=== PATIENT | female | born 1960 | race Hispanic/Latino ===

== ENCOUNTER 2018-01-10 17:04 | Emergency (ER) | payer BC, OTHER ==
[2018-01-10] MEDS ORDERED: LORATADINE 10 MG TABLET ONE (18:03)
[2018-01-10] MEDS ORDERED: IPRATROPIUM/ALBUTEROL SULFATE 3 ML SOLUTION IH ONE (18:17)
[2018-01-10] MEDS ORDERED: DIPHENHYDRAMINE HCL 25 MG CAPSULE ONE (19:29)
== END 2018-01-10 20:44 | disposition home or self-care (01) ==
LOC: EDH 17:04
DX: J30.0 Vasomotor rhinitis (principal); J01.90 Acute sinusitis, unspecified; R05 Cough; I10 Essential (primary) hypertension; M79.1 Myalgia; Z72.0 Tobacco use
CPT/HCPCS: 71046; 87804 ×2; 94640; 99285; Q0163

== ENCOUNTER 2018-10-11 10:16 | Emergency (ER) | payer OTHER ==
[2018-10-11] MEDS ORDERED: KETOROLAC TROMETHAMINE 60 MG/2 ML VIAL ONE (10:52)
[2018-10-11] MEDS ORDERED: DIAZEPAM 5 MG TABLET ONE (10:53)
== END 2018-10-11 14:14 | disposition home or self-care (01) ==
LOC: EDH 10:16
DX: K59.00 Constipation, unspecified (principal); M54.6 Pain in thoracic spine; I10 Essential (primary) hypertension; Z90.710 Acquired absence of both cervix and uterus; Z98.890 Other specified postprocedural states; Z72.0 Tobacco use
CPT/HCPCS: 74021; 96372; 99283; J1885

== ENCOUNTER 2018-11-12 02:50 | Emergency (ER) | payer OTHER ==
[2018-11-12 03:33] LABS: BASOPHILS % (AUTO) 0.9 % (0.0-5.0); EOSINOPHILS % (AUTO) 2.4 % (0.0-8.0); LYMPHOCYTES % (AUTO) 36.9 % (21.0-51.0); MEAN CORPUSCULAR HEMOGLOBIN 31.6 pg (27.0-33.0); MEAN CORPUSCULAR HGB CONC 33.7 g/dL (32.0-36.0); MEAN CORPUSCULAR VOLUME 93.8 fL (79-99); MONOCYTES % (AUTO) 7.8 % (3.0-13.0); PLATELET COUNT (AUTO) 249 K/uL (130-400); RED BLOOD CELL COUNT(AUTO) 3.95 MIL/uL (4.00-5.50); RED CELL DISTRIBUTION WIDTH 12.6 % (11.0-15.5); WHITE BLOOD COUNT (AUTO) 6.9 K/uL (4.8-10.8)
[2018-11-12 04:07] LABS: POTASSIUM 3.8 mmol/L (3.5-5.1)
[2018-11-12 04:14] LABS: ALBUMIN 3.8 g/dL (3.5-5.0); BILIRUBIN,TOTAL 0.2 mg/dL (0.2-1.0); TOTAL PROTEIN, SERUM 6.9 g/dL (6.0-8.3)
[2018-11-12] MEDS ORDERED: PREDNISONE 20 MG TABLET ONE (04:37)
[2018-11-12] MEDS ORDERED: AZITHROMYCIN 250 MG TABLET PO ONE (04:38)
[2018-11-12] MEDS ORDERED: IPRATROPIUM/ALBUTEROL SULFATE 3 ML SOLUTION IH ONE (04:41)
== END 2018-11-12 05:57 | disposition home or self-care (01) ==
LOC: EDH 02:50
DX: J20.9 Acute bronchitis, unspecified (principal); I10 Essential (primary) hypertension; Z87.891 Personal history of nicotine dependence
CPT/HCPCS: 36415; 71046; 80053; 82550; 84484; 85025; 93005; 94640

== ENCOUNTER 2022-05-08 14:40 | Emergency (ER) | payer MEDICARE, OTHER ==
[~2022-05-08] VITALS: Ht 160 cm; Wt 108.4 kg
[2022-05-08 15:11] VITALS: BP 129/75
[2022-05-08] MEDS ORDERED: D-ME1POW16 PO (16:58)
== END 2022-05-08 17:05 | disposition home or self-care (01) ==
LOC: EDH 14:40
DX: J06.9 Acute upper respiratory infection, unspecified (principal); Z20.822 Contact with and (suspected) exposure to COVID-19; E78.00 Pure hypercholesterolemia, unspecified; I10 Essential (primary) hypertension; E66.01 Morbid (severe) obesity due to excess calories; Z88.8 Allergy status to other drugs, medicaments and biological substances; Z68.41 Body mass index [BMI] 40.0-44.9, adult
CPT/HCPCS: 99284; 71045; 87635; 87880; 87804 ×2; C9803

== ENCOUNTER 2025-06-05 21:20 | Emergency (ER) | payer MEDICARE ==
[~2025-06-05] VITALS: Ht 160 cm; Wt 79.8 kg
[~2025-06-05 21:20] MED LIST: D-ME1POW16 PO
[2025-06-05 21:21] VITALS: TEMP 98.6
--- NOTE | 2025-06-05 21:36 | EKG ---
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
[2025-06-05 21:37] LABS: IMMATURE GRANULOCYTE ABSOLUTE 0.11 K/uL (0-1); NUCLEATED RED BLOOD CELLS 0.0 % (0.0-0.19); PLATELET COUNT (AUTO) 295 K/uL (130-400); RED BLOOD CELL COUNT(AUTO) 4.04 MIL/uL (4.00-5.50); RED CELL DISTRIBUTION WIDTH 11.9 % (11.0-15.5); WHITE BLOOD COUNT (AUTO) 10.9 K/uL (4.8-10.8)
[2025-06-05 21:53] LABS: CREATININE 0.9 mg/dL (0.5-1.0); GLOMERULAR FILTR. RATE CALC 72.0 mL/min (>90); GLUCOSE,RANDOM 121.0 mg/dL (70-105); SODIUM SERUM 133.0 mmol/L (136-145); UREA NITROGEN, BLOOD 18.0 mg/dL (7-18)
[2025-06-05] MEDS: DICYCLOMINE HCL 10 MG/5 ML ML PO ONE (21:53)
[2025-06-05] MEDS: MAG/ALUM/SIMETH 30 ML UDCUP PO ONE (21:53)
[2025-06-05] MEDS: LIDOCAINE HCL 2% VISCOUS 15 ML UDCUP PO ONE (21:53)
[2025-06-05] MEDS: FAMOTIDINE 20MG TAB PO ONE (22:05)
[2025-06-05 23:05] VITALS: BP 121/77; PULSE 81; RESP 18; O2SAT 98
[2025-06-05 23:10] LABS: APPEARANCE,URINE CLEAR (CLEAR); GLUCOSE, URINE (UA) NEGATIVE (NEGATIVE); LEUKOCYTE ESTERASE ,URINE NEGATIVE Leu/uL (NEGATIVE); NITRATE,URINE NEGATIVE (NEGATIVE); OCCULT BLOOD,URINE NEGATIVE (NEGATIVE)
[2025-06-05 23:15] LABS: ADD UA MICROSCOPIC NO
[2025-06-05] MEDS ORDERED: PANT40TA PO (23:15)
[2025-06-05] MEDS ORDERED: KETO10 PO (23:15)
--- NOTE | 2025-06-05 23:22 | ERN ---
ED Note History of Present Illness Stated Complaint: ABDOMINAL PAIN/CHEST PAIN Chief Complaint: Abdominal Pain Time Seen by MD: 21:25 Dictation: This is a 65-year-old female from [facility] visiting her sister in [place] and she began experiencing upper abdominal pain radiating to the chest. She stated that all this started just today after eating dinner and she started having severe burning sensation and she tried drinking. Carbonated. Water without much improvement she also drank Coke and coffee prior to eating. No nausea vomitings diarrhea hematemesis or melena. She normally takes omeprazole at home. She also apparently gets something when her abdominal cramps start from her local physician but she did not bring any of her medications here Temperature 98.6 pulse 81 respirations 20 blood pressure 183/93 with a pulse oximetry of 100% on room air Patient has chronic medical problems include diverticulitis, GERD, hypercholesterolemia, hypertension, morbid obesity Allergies: Coded Allergies: gabapentin (Unverified Allergy, Unknown, 05/08/22) pregabalin (Unverified Allergy, Unknown, 05/08/22) Home Meds Active Scripts D-Methorphan/PE/Acetaminophen (Theraflu Ms Severe Cold Pckt) 1 Each Powd.pack, 1 EACH PO QID, #20 PACK Prov:GUERRERO ALEMAN 05/08/22 Past Medical History Past Medical History: Diverticulitis, GERD, High Cholesterol, Hypertension Additional Past Medical Hx: Morbidly obese Surgical History: Hysterectomy Surgical History Other: CARPAL TUNNLE AND ELBOW Family History: Negative Social History: Negative History: Not Applicable RN Note Reviewed/Agreed w/PFSH: Yes Review of System Dictation Constitutional: Negative for fever,chills, and weight loss Eyes: Negative for injury, pain,redness, and discharge ENT: Negative for injury,pain or swelling Cardiovascular: Negative for chest pain, palpitations, and edema Respiratory: Negative for shortness of breath, cough, and wheezing, Abdomen/GI: Positive for epigastricabdominal pain, severe heartburn and denied nausea, vomiting, diarrhea, and constipation Back: Negative for injury and pain : Negative for injury, bleeding and discharge MS/Extremity: Negative for injury and deformity Skin: Negative for rash, and discoloration Neuro: Negative for headache, weakness, numbness, tingling, and seizure Psych: Negative for suicide ideation, homicidal ideation, and hallucinations Initial Vital Sign VS Vital Signs Date Time Temp Pulse Resp B/P (MAP) Pulse Ox O2 Delivery O2 Flow Rate FiO2 06/05/25 21:21 98.6 81 20 183/93 100 Room Air 0 06/05/25 22:04 21 Physical Exam Dictation General: awake, alert, NAD obese female who is not in any distress Head/Face: Normocephalic, atraumatic Eyes: PERRL, EOMI, vision at baseline ENT: oral cavity clear, TMs clear, no signs of infection Neck: Trachea midline, supple, no nuchal rigidity Cardiovascular: RRR, normal S1/S2, No MRGs, no JVD Respiratory: CTAB, no respiratory distress, No rales or wheezes Abdomen: Soft, mild tenderness in the epigastric area and chest wall non- distended, normal bowel sounds, no guarding or rebound. Skin: Warm, dry, normal turgor, no rash MS/Extremity: Pulses equal, no cyanosis, neurovascular intact, FROM Neuro: COAx4, GCS 15, strength 5/5, CN 2-12 intact, normal cerebellar exam, normal gait, Psych: Normal behavior, mood, and affect normal Extremities-trace edema without any palpable cords, Homans sign is negative Results (Laboratory/Radiology) Laboratory/Radiology Laboratory Tests Test 06/05/25 21:30 White Blood Count 10.9 K/uL (4.8-10.8) H Red Blood Count 4.04 MIL/uL (4.00-5.50) Hemoglobin 13.0 g/dL (12.0-16.0) Hematocrit 37.3 % (36-48) Mean Corpuscular Volume 92.3 fL (79-99) Mean Corpuscular Hemoglobin 32.2 pg (27.0-33.0) Mean Corpuscular Hemoglobin Concent 34.9 g/dL (32.0-36.0) Red Cell Distribution Width 11.9 % (11.0-15.5) Platelet Count 295 K/uL (130-400) Mean Platelet Volume 10.0 fL (7.5-10.5) Immature Granulocyte % (Auto) 1.0 % (0-1) Neutrophils (%) (Auto) 80.5 % (40.0-77.0) H Lymphocytes (%) (Auto) 14.3 % (21.0-51.0) L Monocytes (%) (Auto) 3.8 % (3.0-13.0) Eosinophils (%) (Auto) 0.0 % (0.0-8.0) Basophils (%) (Auto) 0.4 % (0.0-5.0) Neutrophils # (Auto) 8.8 K/uL (1.8-7.7) H Lymphocytes # (Auto) 1.6 K/uL (1.0-4.8) Monocytes # (Auto) 0.4 K/uL (0.1-1.0) Eosinophils # (Auto) 0.00 K/uL (0.00-0.70) Basophils # (Auto) 0.04 K/uL (0.00-0.20) Absolute Immature Granulocyte (auto 0.11 K/uL (0-1) Nucleated Red Blood Cells 0.0 % (0.0-0.19) Sodium Level 133 mmol/L (136-145) L Potassium Level 3.1 mmol/L (3.5-5.1) L Chloride Level 102 mmol/L (101-111) Carbon Dioxide Level 29 mmol/L (21-32) Blood Urea Nitrogen 18 mg/dL (7-18) Creatinine 0.9 mg/dL (0.5-1.0) Glomerular Filtration Rate Calc 72 mL/min (>90) Random Glucose 121 mg/dL (70-105) H Total Calcium 9.4 mg/dL (8.5-10.1) Troponin I High Sensitivity 13 ng/L (4-50) Lipase 50 U/L (16-77) Labs Reviewed?: Yes ED Course ED Course Orders Procedure Category Date Status Time Vital Signs Per CPOE 06/05/25 Transmitted Routine 21:24 Saline Lock Iv CPOE 06/05/25 Transmitted 21:24 Cbc With Differential LAB 06/05/25 Complete 21:24 Lipase LAB 06/05/25 Complete 21:24 Urinalysis Profile LAB 06/05/25 In Process 21:24 12 Lead Ekg Tracing- EKG 06/05/25 Complete Technical 21:24 Troponin I High LAB 06/05/25 Complete Sensitivity 21:24 Basic Metabolic Panel LAB 06/05/25 Complete 21:24 Ketorolac PHA 06/05/25 Complete Tromethamine 15mg/Ml 22:00 Lidocaine Hcl 2% PHA 06/05/25 Complete Viscous (Lidocaine Hcl 22:00 Mag/Alum/Simeth 30ml PHA 06/05/25 Complete (Maalox Plus 30ml) 22:00 Famotidine 20mg Tab PHA 06/05/25 Complete (Pepcid 20mg Tab) 22:00 Dicyclomine Hcl PHA 06/05/25 Complete (Bentyl 10mg/5ml 22:00 Chest 1vw RAD 06/05/25 Taken 21:34 Potassium Bicarb/Cit PHA 06/05/25 Complete Ac 25meq (K-Lyte Ta 23:00 Current Medications Medications (Trade) Dose Ordered Sig/Florencia Route PRN Reason Start Time Stop Time Status Last Admin Dose Admin Al Hydroxide/Mg Hydroxide (MAALox PLUS 30ML) 30 ml ONCE ONCE PO 06/05/25 22:00 06/05/25 22:01 DC 06/05/25 21:53 Dicyclomine HCl (Bentyl 10mg/5ml Syrup) 10 mg ONCE ONCE PO 06/05/25 22:00 06/05/25 22:01 DC 06/05/25 21:53 Famotidine (Pepcid 20mg Tab) 20 mg ONCE ONCE PO 06/05/25 22:00 06/05/25 22:01 DC 06/05/25 22:05 Ketorolac Tromethamine (toRADol) 15 mg ONCE ONCE IV 06/05/25 22:00 06/05/25 22:01 DC 06/05/25 21:53 Lidocaine HCl (Lidocaine HCl 2% Viscous) 10 ml ONCE ONCE PO 06/05/25 22:00 06/05/25 22:01 DC 06/05/25 21:53 Potassium Bicarbonate (K-Lyte Tablet Eff 25 Meq Tablet.eff) 50 meq ONCE ONCE PO 06/05/25 23:00 06/05/25 23:01 DC 06/05/25 22:54 Vital Signs Date Time Temp Pulse Resp B/P (MAP) Pulse Ox O2 Delivery O2 Flow Rate FiO2 06/05/25 23:05 81 18 121/77 98 Room Air* 0 21 06/05/25 22:04 80 16 168/90 100 Room Air* 0 21 06/05/25 21:21 98.6 81 20 183/93 100 Room Air 0 We will perform diagnostic labs, imaging and administer medications according to the patient's complaint. Once the results are available, will review and personally interpreted the labs to rule out any acute life-threatening emergency the trach require immediate intervention and treatment. I will then re-evaluate the patient after treatment and diagnostic exams have return to determine whether the patient requires any further testing, can safely be discharged home or need further admission to hospital for additional treatment and evaluation. Labs reviewed CBC shows a white count of 10.9 hemoglobin and platelet count are within normal limits BNP 7 is significant for a potassium of 3.1 sodium 133 glucose is 121 lipase is 50 chest x-ray is unremarkable for any acute infiltrate Patient responded very well to symptomatic treatment and stated that even her chronic back pain is significantly improved. Potassium repleted. Patient will be discharged to home to follow up with her primary care physician in [place] Medical Decision Making MDM Differential diagnosis: Gastritis, esophagitis, biliary colic, gastroesophageal reflux disease, peptic ulcer disease, hiatal hernia Rationale: Tests considered and ordered secondary to shared decision making include: Previous outside records reviewed: Old ER visits. Risk of complication and/or morbidity or mortality of patient management: None Medications-Per medication reconciliation Need for hospitalization: Patient does not meet criteria for hospitalization. Need for emergency major/minor surgery: No There are no social concerns with this patient. Prescription drug management Prescriptions will include symptomatic care Patient's prior external medical records from other ER visits were reviewed by me as indicated. Prior testing and results from previous visits were reviewed. Prior tests were taken into account with medical decision making and resource utilization, independent historian/historians were used to obtain complete medical history. I independently interpreted the test that were performed, results were reviewed by me and considered findings on radiology if ordered. Medical management and examination interpretation discussions were had by me with other qualified healthcare professionals as indicated for the patient's care. DX & DISP Disposition: Discharge Departure Impression: Primary Impression: Gastroesophageal reflux disease Additional Impression: Esophagitis with gastritis Condition: Stable Scripts Pantoprazole Sodium (Protonix) 40 Mg Tablet. 1 TAB PO DAILY for 15 Days, #15 TAB 0 Refills Prov: DILCIA FLORES MD 06/05/25 Ketorolac Tromethamine (Toradol) 10 Mg Tab 10 MG PO QID for pain for 5 Days, #20 TAB 0 Refills Prov: DILCIA FLORES MD 06/05/25 Additional Instructions: Patient and the caregiver have been informed of all the diagnostic tests and the imaging conducted during the today's visit to the emergency room and has verbalized understanding of the results I have personally reviewed and interpreted all diagnostic exams performed here in the ER today as well as the vital signs documented by the nursing staff. The patient is now being discharged to home and should follow up with the primary care physician or the specialist as directed by the ER staff. Follow-up with primary care provider in 1 to 2 days. Take medications as directed here in the emergency room. Okay to continue home medications unless otherwise discussed during your visit in the emergency room today. Return to your nearest emergency room if symptoms worsen or if there is no improvement. Call 911 if you need immediate assistance. Take Tylenol or Motrin [id number] as needed and if no contraindications are present. Increase oral hydration. A wound culture or urine culture was ordered here in the emergency room department please follow-up with primary care provider and advise them to get repeat ports from our facility. If you had any Arpan wrap/splints that were applied here, please do not remove them until you see your primary care or specialty. Patient must follow up with the primary care physician in [place] . Referrals: SELF,REFERRAL (PCP) DILCIA FLORES MD Jun 05, 2025 23:21
--- NOTE | 2025-06-05 23:55 | HMCIMG ---
EXAM: CR Chest, 1 view CLINICAL HISTORY: Chest pain. COMPARISON: Chest radiograph dated 11/12/2018. FINDINGS: The lungs show no infiltrates or other acute findings. No pleural effusion or pneumothorax. The cardiomediastinal silhouette is within normal limits. No acute osseous abnormality. IMPRESSION: No acute cardiopulmonary process is evident. No interval changes. /Marina
== END 2025-06-05 23:36 | disposition home or self-care (01) ==
LOC: EDH 21:20
DX: K21.00 Gastro-esophageal reflux disease with esophagitis, without bleeding (principal); E78.00 Pure hypercholesterolemia, unspecified; E66.01 Morbid (severe) obesity due to excess calories; I10 Essential (primary) hypertension; Z88.8 Allergy status to other drugs, medicaments and biological substances; Z90.710 Acquired absence of both cervix and uterus; Z68.31 Body mass index [BMI] 31.0-31.9, adult
CPT/HCPCS: 99285; 96374; 71045; 84484; 80048; 83690; 85025; 81003; 36415; 93005; J1885